=== PATIENT | female | born 1990 | race Caucasian/White ===

== ENCOUNTER → 2023-11-10 14:02 | Outpatient (CLI) | payer OTHER, MEDICAID, SELFPAY ==
--- NOTE | 2023-11-10 14:04 | DI.US.S_ITS ---
PROCEDURE: US ABDOMEN LIMITED INDICATIONS: LIPOMA LEFT MID BACK TECHNIQUE: Real-time focused scanning was performed of the abdomen, with image documentation. COMPARISON: None. FINDINGS: Corresponding the palpable area of concern in the left back, there is a subcutaneous hyperechoic lesion measuring 2.4 x 0.7 x 1.4 cm. Trace vascularity is present. IMPRESSION: Subcutaneous hyperechoic 2.4 cm mass corresponds to the palpable abnormality and is most likely a lipoma. Other benign and malignant soft tissue masses are not entirely excluded and clinical correlation is recommended. CT or MRI could be performed for further characterization if indicated clinically. Approved by: Wes Penaloza M.D. on 11/10/2023 at 20:58
== END ==
PROVIDERS: Referring Provider Family Medicine; Visit Provider Family Medicine
DX: D17.1 Benign lipomatous neoplasm of skin and subcutaneous tissue of trunk
CPT/HCPCS: 76705

== ENCOUNTER → 2024-05-15 10:40 | Oncology outpatient (ONC) | payer OTHER, SELFPAY ==
--- NOTE | 2023-12-13 10:09 | ONC.SCHED ---
Notified patient's disease case manager, Renay, at [facility] of 2nd no show.
[2024-05-15 10:47] VITALS: BP 121/79; PULSE 89; RESP 16; TEMP 36.5; O2SAT 98
[2024-05-15] MEDS: IRON SUCROSE 200 MG in SODIUM CHLORIDE 0.9% 100 ML 220 MG IV (11:14)
== END ==
PROVIDERS: PCP Family Medicine; Referring Provider Family Medicine; Visit Provider Family Medicine
DX: D50.9 Iron deficiency anemia, unspecified (principal)
CPT/HCPCS: 96365; J1756

== ENCOUNTER 2024-06-22 12:47 | Emergency (ER) | payer OTHER, SELFPAY ==
[2024-06-22 13:05] VITALS: BP 145/84; PULSE 95; RESP 16; TEMP 36.3; O2SAT 98; BMI 29.7
[2024-06-22 16:23] VITALS: BP 162/98; PULSE 91; RESP 18; TEMP 37; O2SAT 100
[2024-06-22] MEDS: ACETAMINOPHEN 325 MG TABLET 975 MG PO (16:29)
[2024-06-22] MEDS: KETOROLAC 30 MG/ML VIAL IM (16:31)
--- NOTE | 2024-06-22 16:34 | PC.NURSE ---
At time of triage MD Johnson stated to hold on blood work
[2024-06-22 16:52] VITALS: TEMP 37
[2024-06-22 16:53] LABS: Basophils Absolute Auto 0 /uL (0-100); Basophils Percent Auto 0.4 % (0-2); Eosinophils Absolute Auto 0 /uL (0-450); Eosinophils Percent Auto 0.4 % (2-4); Hematocrit 36.5 % (36-46); Hemoglobin 11.8 g/dL (12.0-16.0); Lymphocytes Absolute Auto 1600 /uL (1100-4500); Lymphocytes Percent Auto 15.6 % (25-40); Mean Corpuscular HGB Conc 32.5 % (30-36); Mean Corpuscular Hemoglobin 23.9 PG (26-34); Mean Corpuscular Volume 73.7 fL (80-100); Monocytes Absolute Auto 600 /uL (0-900); Monocytes Percent Auto 6.2 % (3-14); Neutrophils Absolute Auto 8000 /uL (1500-7000); Neutrophils Percent Auto 77.4 % (50-75); Platelet Count 242 X10^3/uL (150-400); Red Blood Cell Count 4.95 X10^6/uL (4.0-5.2); Red Cell Distribution Width 30.8 % (11.6-14.8); White Blood Cell Count 10.4 X10^3/uL (4.5-11.0)
[2024-06-22 16:55] LABS: Add Manual Diff / Slide Review SLIDE REVIEW
[2024-06-22 17:06] LABS: Alanine Aminotransferase 19 IU/L (<35); Albumin 4.9 g/dL (3.5-5.0); Albumin Globulin Ratio 1.3 (1.0-2.8); Alkaline Phosphatase 78 U/L (38-126); Anisocytosis 2+; Aspartate Aminotransferase 27 IU/L (14-36); BUN Creatinine Ratio 12.5 (6-22); Bilirubin Total 0.5 mg/dL (0.2-1.3); Blood Urea Nitrogen 9 mg/dL (7-17); Calcium 9.6 mg/dL (8.4-10.2); Carbon Dioxide 25 mmol/L (22-32); Chloride 102 mmol/L (98-107); Estimated Glomerular Filt Rate > 60 mL/min (>60); Globulin 3.9 g/dL (1.7-4.1); Glucose 95 mg/dL (70-99); HEMOLYSIS < 15 (0-50); Hypochromasia 1+; Microcytosis 1+; Ovalocytes 1+; Potassium 3.4 mmol/L (3.4-5.1); Sodium 140 mmol/L (137-145); Total Protein 8.8 g/dL (6.3-8.2)
[2024-06-22 17:07] LABS: Lactate (Lactic Acid) 1.4 mmol/L (0.7-2.1)
--- NOTE | 2024-06-23 19:35 | ED_ITS ---
HPI - Dental/Oral General Chief complaint: Dental/Oral Stated complaint: abscess right side of mouth Related Data Allergies Allergy/AdvReac Type Severity Reaction Status Date / Time No Known Drug Allergies Allergy Verified 06/22/24 13:05 Exam Initial Vital Signs Initial Vital Signs: Vital Signs Temperature 97.4 F L 06/22/24 13:05 Pulse Rate 95 H 06/22/24 13:05 Respiratory Rate 16 06/22/24 13:05 Blood Pressure 145/84 H 06/22/24 13:05 Pulse Oximetry 98 06/22/24 13:05 Oxygen Delivery Method Room Air 06/22/24 13:05 Course Orders Ordered: Discontinued Medications Acetaminophen (Acetaminophen 325 Mg Tablet) 975 mg PO NOW ONE Stop: 06/22/24 16:19 Last Admin: 06/22/24 16:29 Dose: 975 mg Documented By: CANDICE Ketorolac Tromethamine (Ketorolac 30 Mg/Ml Vial) 30 mg IM NOW ONE Stop: 06/22/24 16:19 Last Admin: 06/22/24 16:31 Dose: 30 mg Documented By: CANDICE MDM - Dental/Oral Lab Data 06/22/24 16:40 06/22/24 16:40 Labs: Lab Results 06/22/24 Range/Units 16:40 WBC 10.4 (4.5-11.0) X10^3/uL RBC 4.95 (4.0-5.2) X10^6/uL Hgb 11.8 L (12.0-16.0) g/dL Hct 36.5 (36-46) % MCV 73.7 L (80-100) fL MCH 23.9 L (26-34) PG MCHC 32.5 (30-36) % RDW 30.8 H (11.6-14.8) % Plt Count 242 (150-400) X10^3/uL Neut % (Auto) 77.4 H (50-75) % Lymph % (Auto) 15.6 L (25-40) % [place] % (Auto) 6.2 (3-14) % Eos % (Auto) 0.4 L (2-4) % Baso % (Auto) 0.4 (0-2) % Neut # (Auto) 8000 H (4483-4762) /uL Lymph # (Auto) 1600 (4578-6114) /uL [place] # (Auto) 600 (0-900) /uL Eos # (Auto) 0 (0-450) /uL Baso # (Auto) 0 (0-100) /uL RBC Morphology See below Hypochromasia 1+ H Anisocytosis 2+ H Microcytosis 1+ H Ovalocytes 1+ H Sodium 140 (137-145) mmol/L Potassium 3.4 (3.4-5.1) mmol/L Chloride 102 (98-107) mmol/L Carbon Dioxide 25 (22-32) mmol/L BUN 9 (7-17) mg/dL Creatinine 0.72 (0.52-1.04) mg/dL Estimated GFR > 60 (>60) mL/min BUN/Creatinine Ratio 12.5 (6-22) Glucose 95 (70-99) mg/dL Lactate 1.4 (0.7-2.1) mmol/L Calcium 9.6 (8.4-10.2) mg/dL Total Bilirubin 0.5 (0.2-1.3) mg/dL AST 27 (14-36) IU/L ALT 19 (<35) IU/L Alkaline Phosphatase 78 (38-126) U/L Total Protein 8.8 H (6.3-8.2) g/dL Albumin 4.9 (3.5-5.0) g/dL Globulin 3.9 (1.7-4.1) g/dL Albumin/Globulin Ratio 1.3 (1.0-2.8) Discharge Plan Departure Patient Disposition: Left Without Being Seen Clinical Impression: Patient left after triage
== END 2024-06-22 18:20 | disposition left against medical advice (07) ==
PROVIDERS: Emergency Medicine; Emergency Provider Family Medicine; PCP Family Medicine
DX: L02.91 Cutaneous abscess, unspecified (principal)
CPT/HCPCS: 80053; 83605; 85025; 99283; J1885